=== PATIENT | female | born 1955 | race Caucasian/White ===

== ENCOUNTER → 2017-03-31 | Outpatient (CLI) | payer OTHER ==
[~2017-03-31] MED LIST: ALEV220T14 PO; ALPR-138 PO; ALPR.25 PO; HYDR-3580 PO; SUMA100T2 PO; Z.0.NO CURRENT MEDS
[2017-03-31 08:26] LABS: AUTOMATED NEUTROPHIL # 4.2 TH/MM3 (1.8-7.7); BASOPHIL % 0.3 % (0.0-2.0); EOSINOPHIL # 0.1 TH/MM3 (0-0.4); EOSINOPHIL % 1.8 % (0.0-4.0); HEMATOCRIT 37.9 % (35.0-46.0); HEMO FLAGS DIFF FINAL; LYMPH % 24.4 % (9.0-44.0); LYMPHOCYTE # 1.6 TH/MM3 (1.0-4.8); MEAN CELL VOLUME 91.5 FL (80.0-100.0); MEAN CORPUSCULAR HEMOGLOBIN 30.6 PG (27.0-34.0); MEAN CORPUSCULAR HGB CONC 33.4 % (32.0-36.0); MONO % 7.4 % (0.0-8.0); NEUT % 66.1 % (16.0-70.0); PLATELET COUNT 285 TH/MM3 (150-450); RED BLOOD COUNT 4.14 MIL/MM3 (4.00-5.30); RED CELL DISTRIBUTION WIDTH 13.1 % (11.6-17.2); WHITE BLOOD COUNT 6.4 TH/MM3 (4.0-11.0)
[2017-03-31 09:04] LABS: ALT (GPT) 17 U/L (10-53); ANION GAP 8 MEQ/L (5-15); AST (GOT) 17 U/L (15-37); BICARBONATE 27.1 MEQ/L (21.0-32.0); BLOOD UREA NITROGEN 28 MG/DL (7-18); CHLORIDE 103 MEQ/L (98-107); GLOMERULAR FILTRATION RATE 86 ML/MIN (>89); GLUCOSE,FASTING 96 MG/DL (74-99); POTASSIUM 4.4 MEQ/L (3.5-5.1); SODIUM (NA) 138 MEQ/L (136-145)
[2017-03-31 09:06] LABS: ALKALINE PHOSPHATASE 102 U/L (45-117); TOTAL BILIRUBIN ADULT 0.3 MG/DL (0.2-1.0)
[2017-03-31 09:36] LABS: BLOOD, URINE NEG (NEG); COMMENT (UR) CULT NOT INDICATED; CULTURE IF INDICATED CULT NOT INDICATED; GLUCOSE,URINE NEG (NEG); KETONE, URINE NEG (NEG); MUCUS URINE FEW /lpf (OCC); NITRITE,URINE NEG (NEG); PH, URINE 5.5 (5.0-8.5); SQUAMOUS EPITHELIAL CELL URINE <1 /hpf (0-5); URINE COLOR LIGHT-YELLOW (YELLW/STRAW)
--- NOTE | 2017-03-31 16:42 | EKG ---
Date Performed: 03/31/2017 Time Performed: 08:17:47 PTAGE: 61 years EKG: Sinus rhythm Since previous tracing, no significant change noted NORMAL ECG PREVIOUS TRACING : 05/06/2010 08.51 DOCTOR: Saniya Pacheco Interpretating Date/Time 03/31/2017 16:41:05
== END ==
LOC: CPRE 07:54
PROVIDERS: ATTEND Orthopaedic Surgery
DX: Z01.810 Encounter for preprocedural cardiovascular examination (principal); Z01.812 Encounter for preprocedural laboratory examination; M19.211 Secondary osteoarthritis, right shoulder; M75.121 Complete rotator cuff tear or rupture of right shoulder, not specified as traumatic
CPT/HCPCS: 36415; 80053; 81001; 85025; 93005

== ENCOUNTER 2017-04-19 05:20 | Inpatient (IN) | payer OTHER ==
--- NOTE | 2017-04-18 17:45 | MH ---
cc: SUDHA MANJARREZ DATE OF ADMISSION 04/19/2017 ADMISSION DIAGNOSIS 1. Rotator cuff arthropathy right shoulder. 2. Irreparable recurrent rotator cuff tear right shoulder combined with osteoarthritis with upward migration at the head of the humerus. MEDICATIONS 1. Xanax 0.25 mg daily. 2. Lately she has been taking some Hydrocodone and Tramadol for pain. ALLERGIES PENICILLIN SOCIAL HISTORY She works in a sedentary occupation in billing services. She does not smoke. PAST SURGICAL HISTORY 1. Rotator cuff repair arthroscopically by Dr. Manjarrez in 2010 and it worked very well until about eight months ago. 2. Hysterectomy 3. Rhinoplasty. PAST MEDICAL HISTORY Anxiety disorder HISTORY OF PRESENT ILLNESS About five months ago, she heard a pop in her right arm, was using it and, since then, she has had progressive increase in pain, discomfort, disability and inability to do activities of daily living. An MRI scan was done which shows evidence of rotator cuff arthropathy with a retracted recurrent tear of the supraspinatus with significant tendinopathy of the rotator cuff tendons and significant decrease in subacromial space. The diagnosis, the treatment, the prognosis and the alternatives of treatment and the potential risks, hazards and complications and expected results and postoperative course have all been discussed in detail with the patient. Informed consent obtained. No guarantees made. Detailed informed consent particularly in reference to a reverse shoulder arthroplasty and the potential risks and hazards have all been documented on the office record and therefore will not be repeated here. PHYSICAL EXAMINATION GENERAL: A white female of medium build and nourishment. HEENT: Head is normocephalic. Pupils react to light. Face symmetrical. HEART: Regular rhythm. No murmurs. LUNGS Clear to auscultation. ABDOMEN: Soft and supple. Right shoulder reveals painful restriction of range of motion with only about 80 degrees of abduction and about 90-95 degrees of flexion and significant restriction of rotation and severe weakness to external rotation against resistance with the arm by the side. There is neurovascular deficit in the right hand. MD RONALDO Pool/ /5:24 PM /5:32 PM
[~2017-04-19] VITALS: Ht 160 cm; Wt 67.8 kg
[~2017-04-19 05:20] MED LIST changes: -ALPR-138 PO; -SUMA100T2 PO; -Z.0.NO CURRENT MEDS
[2017-04-19] MEDS ORDERED: SODIUM CHLORID 0.9% 500 ML IV PRN (06:00)
[2017-04-19] MEDS ORDERED: LACTATED RINGER'S 1000 ML IV PRN (06:00)
[2017-04-19] MEDS ORDERED: METOPROLOL TARTRATE 25 MG TAB PO PRN (06:00)
[2017-04-19] MEDS ORDERED: POVIDONE IODINE 5% (ANTISEPSIS KIT) 4 APPLICATIONS EACH NARE PRN (06:00)
[2017-04-19] MEDS ORDERED: CHLORHEXIDINE GLUCONATE 2 % 1 PACK (2 CLOTHS) TOPICAL PRN (06:00)
[2017-04-19] MEDS ORDERED: SODIUM CHLORIDE 0.9% INJ 100 ML ONE ×2 (06:12→06:13)
[2017-04-19] MEDS ORDERED: POVIDONE IODINE 7.5% SCRUB 118 ML BOTTLE TOPICAL SCH (06:15)
[2017-04-19] MEDS ORDERED: VANCOMYCIN 1,250 MG/NS 250 ML (for 70-84 kg) IV SCH ×2 (06:15)
[2017-04-19] MEDS ORDERED: CLINDAMYCIN 900/NS 100 ML IV SCH ×2 (06:15)
[2017-04-19] MEDS ORDERED: BUPIVACAINE HCL PF 0.5% 30 ML VIAL ONE (07:01)
[2017-04-19] MEDS ORDERED: TOBRAMYCIN 1200 MG VIAL (ortho-sterile core) ONE (07:04)
[2017-04-19] MEDS ORDERED: GENTAMICIN SULFATE 80 MG/2 ML VIAL ONE (07:04)
[2017-04-19] MEDS ORDERED: PROMETHAZINE HCL 25 MG TAB PO PRN (10:45)
[2017-04-19] MEDS ORDERED: NALOXONE HCL 0.4 MG/ML AMP IV PUSH PRN (10:45)
[2017-04-19] MEDS ORDERED: ACETAMINOPHEN/HYDROcodone 325 MG/5 MG TAB PO PRN (10:45)
[2017-04-19] MEDS ORDERED: traMADol HCL 50 MG TAB PO PRN (10:45)
[2017-04-19] MEDS ORDERED: ONDANSETRON HCL 4 MG/2 ML VIAL IVP PRN (10:45)
[2017-04-19] MEDS ORDERED: Post-op Orders (for Pharmacy) XX ONE (10:45)
[2017-04-19] MEDS ORDERED: HYDR-3516 PO (11:04)
[2017-04-19] MEDS ORDERED: DO NOT ADM ANY ANTICOAGULANT DRUGS PRN (11:04)
[2017-04-19] MEDS ORDERED: TRAM50 PO (11:04)
[2017-04-19] MEDS ORDERED: ASPI325T33 PO (11:07)
[2017-04-19] MEDS ORDERED: *ONDANSETRON 4 MG VIAL PERIprocedural Use ONLY ONE (11:18)
[2017-04-19] MEDS ORDERED: *PROMETHAZINE 25 MG/ML VIAL PERIprocedural use ONLY ONE (11:24)
[2017-04-19] MEDS ORDERED: ePHEDrine/NS 25 MG/5 ML SYRINGE IV ONE (12:00)
[2017-04-19] MEDS ORDERED: NEOSTIGMINE 5 MG/5 ML SYRINGE IV PUSH ONE (12:00)
[2017-04-19] MEDS ORDERED: LACTATED RINGER'S 1000 ML INJ 1,000 ML IV ONE (12:00)
[2017-04-19] MEDS ORDERED: PROPOFOL 200 MG/20 ML AMP IV ONE (12:00)
[2017-04-19] MEDS ORDERED: ONDANSETRON HCL 4 MG/2 ML VIAL IV PUSH ONE (12:00)
[2017-04-19] MEDS ORDERED: ROCURONIUM INJ 50 MG/5 ML SYRINGE IV PUSH ONE (12:00)
[2017-04-19] MEDS ORDERED: LIDOCAINE HCL 1% PF 5 ML SYRINGE OTHER ONE (12:00)
[2017-04-19] MEDS: DEXT 5%-NACL 0.9% 1000 ML INJ 1,000 ML IV SCH ×2 (12:00→23:30)
[2017-04-19] MEDS ORDERED: GLYCOPYRROLATE 1 MG/5 ML SYRINGE IV PUSH ONE (12:00)
[2017-04-19] MEDS ORDERED: PHENYLEPH/NS 1000 MCG/10 ML SYR IV ONE (12:00)
[2017-04-19] MEDS ORDERED: DEXAMETHASONE SOD PHOS 4 MG/ML VIAL IV ONE (12:00)
[2017-04-19] MEDS ORDERED: ESMOLOL HCL 100 MG/10 ML VIAL IV ONE (12:00)
--- NOTE | 2017-04-19 12:37 | RADRPT ---
EXAM DATE/TIME: 04/19/2017 12:17 [facility] COMPARISON: No previous studies available for comparison. INDICATIONS : Post op, right shoulder replacement. MEDICAL HISTORY : None. SURGICAL HISTORY : None. ENCOUNTER: Initial ACUITY: 1 day PAIN SCORE: Non-responsive. LOCATION: Right shoulder FINDINGS: Two view examination of the right shoulder demonstrates postoperative right shoulder replacement. No acute fracture or dislocation. CONCLUSION: 1. Postoperative right total shoulder replacement. Cassius Damon MD on April 19, 2017 at 12:35 Board Certified Radiologist. This report was verified electronically.
[2017-04-19] MEDS ORDERED: MORPHINE SULFATE 2 MG/ML INJ IV PUSH PRN (13:30)
[2017-04-19] MEDS ORDERED: diphenhydrAMINE HCL 50 MG/ML VIAL IV PUSH PRN (14:00)
[2017-04-19] MEDS ORDERED: MAGNESIUM HYDROXIDE SUSP 30 ML CUP PO PRN (14:00)
[2017-04-19 14:30] VITALS: BP 94/57; PULSE 74; RESP 17; TEMP 96.4; O2SAT 99
[2017-04-19] MEDS ORDERED: CLINDAMYCIN INJ 900 MG in SODIUM CHLORIDE 0.9% INJ 100 ML IV SCH (15:00)
[2017-04-19 19:31] VITALS: BP 94/46; PULSE 78; RESP 17; TEMP 96.7; O2SAT 96
[2017-04-19] MEDS ORDERED: ASPIRIN EC 325 MG TABEC PO SCH (20:00)
[2017-04-19] MEDS ORDERED: VANCOMYCIN INJ 1,250 MG in SODIUM CHLOR 0.9% 250 ML INJ 250 ML IV SCH (20:00)
[2017-04-19] MEDS ORDERED: ZOLPIDEM TARTRATE 5 MG TAB PO PRN (21:00)
[2017-04-19] MEDS: KETOROLAC TROMETHAMINE 30 MG/ML (IVP) VIAL IVP SCH (23:19)
[2017-04-19] MEDS: CLINDAMYCIN 900 MG/NS PREMIX 50 ML IV SCH (23:36)
[2017-04-20] VITALS: BP 95/60; PULSE 74; RESP 18; TEMP 97; O2SAT 95
[2017-04-20 04:00] VITALS: BP 82/47; PULSE 79; RESP 18; TEMP 97.2; O2SAT 92
[2017-04-20] MEDS: KETOROLAC TROMETHAMINE 30 MG/ML (IVP) VIAL IVP SCH ×2 (04:44→10:48)
[2017-04-20] MEDS: CLINDAMYCIN 900 MG/NS PREMIX 50 ML IV SCH (04:45)
[2017-04-20 04:58] VITALS: BP 102/64
[2017-04-20 07:01] LABS: HEMATOCRIT 26.7 % (35.0-46.0); REVIEW FLAG FINAL
[2017-04-20 07:11] LABS: BICARBONATE 27.3 MEQ/L (21.0-32.0)
[2017-04-20] MEDS: DEXT 5%-NACL 0.9% 1000 ML INJ 1,000 ML IV SCH (07:42)
[2017-04-20 08:00] VITALS: BP 93/55; PULSE 90; RESP 18; TEMP 95.7; O2SAT 94
[2017-04-20] MEDS ORDERED: ACETAMINOPHEN 1000 MG/100 ML VIAL IV SCH (08:00)
--- NOTE | 2017-04-20 11:34 | MP ---
cc: SUDHA MANJARREZ DATE OF SURGERY 04/19/2017 DATE OF 1955 PREOPERATIVE DIAGNOSIS Rotator cuff arthropathy, right shoulder (irreparable recurrent tear of the supraspinatus with a decreased subacromial space and osteoarthritis). POSTOPERATIVE DIAGNOSIS Rotator cuff arthropathy, right shoulder (irreparable recurrent tear of the supraspinatus with a decreased subacromial space and osteoarthritis). OPERATIVE PROCEDURE Reverse shoulder arthroplasty, right shoulder, using DJO components. We used a standard baseplate, 32 mm/-4 glenosphere, 8 mm porous-coated stem with a standard semi-constrained insert. SURGEON Dr. Manjarrez. ANESTHESIA General with endotracheal intubation. TECHNIQUE After induction of general anesthesia and a scalene block the patient was placed in a semi beach-chair position supported on a beach-chair positioner with good positioning of the head and neck ascertained. The patient was well-secured to the operating room. The right shoulder and right upper extremity were thoroughly prepped with alcohol and ChloraPrep and draped in routine fashion. After application of Ioban adherent drapes a deltopectoral incision was made and deepened through subcutaneous tissue. The cephalic vein was identified and retracted with the deltoid. During the middle of the surgery we could see that the cephalic vein stretching and eventually gave out in spite of us protecting it; therefore the vein was clamped and ligated with 0 silk sutures. The deltopectoral interval was developed. One centimeter of pectoralis major tendon was incised. The arm was externally rotated and the short circumflex vessels were identified, clamped and cauterized with the lateral limit of the dissection being the area of the lateral cauterization. The biceps tendon sheath was opened. There was residual biceps tendon there still hanging into the groove (she had tenotomy during arthroscopic surgery). The interval was opened. It was decided to do a subscapularis peel inserted of the lesser tuberosity osteotomy because the latter does not give any particular benefit with this surgery. The subscapularis was released, the shoulder externally rotated and care taken to stay well close to the bone away from the axillary nerve. Using the osteotomy guide the head was excised. The margin of the osteotomy cuts were smoothed out with a rongeur. Attention was diverted to the glenoid. The superior and inferior capsule was dissected from the subscapularis all the way to the glenoid. The anterior labrum was removed and inferior capsule was released close to bone. The posterior capsule was also released close to bone. Retractors were placed. There was good approach to the glenoid. The center of the glenoid was marked with a Bovie and a guidewire introduced with slight downward inclination. The depth gauge measured well and the screw was placed followed by reaming with preferential reaming inferiorly exposing the subchondral bone. The baseplate was then inserted and got excellent fit and tightness. Four locking screws were placed, two 18 mm, one 14 mm and the superior one being 22 mm. The tissue and bone around the baseplate were cleaned and then the 32 mm/-4 glenosphere was impacted into place with the set screw placed. We now prepared the humerus for an 8 mm stem. Drill holes were placed with #2 FiberWire for repair of the subscapularis. Bone graft was obtained with the head placed in the proximal shaft and the stem impacted getting good fit and fill. Trial reduction was carried out with a semi-constrained standard thickness poly and range of motion and stability were all good. The joint was dislocated and the actual insert placed and impacted. The joint was thoroughly lavaged and suctioned out. Final reduction was carried out. Range of motion and stability were all good. The subscapularis was closed with the previously placed #2 FiberWire sutures. The area was lavaged and suctioned out and the deltopectoral interval closed with #2 Stratafix followed by subcutaneous tissue with 2-0 Vicryl, skin with subcuticular 3-0 Quill and Steri-Strips. A super absorbent dressing was placed over the incision. We had placed a Hemovac drain in the submuscular space, but it fell out during removal of the drapes but it is not an issue at all. Dressings were applied there. The patient was transferred tot he recovery room in satisfactory condition with a sling and swathe on. The patient tolerated the procedure well. TRANSFUSIONS AND COMPLICATIONS None. POSTOPERATIVE CONDITION Satisfactory. ESTIMATED BLOOD LOSS 250 to 300 mL. PROGNOSIS Good. MD RONALDO Pool/ELIAN /11:08 AM /11:15 AM
[2017-04-20 12:00] VITALS: BP 110/55; PULSE 78; RESP 18; TEMP 95.6; O2SAT 94
[2017-04-20 13:30] VITALS: RESP 18
--- NOTE | 2017-04-20 13:43 | PD.ORT.PN ---
Subjective Post Op Day #: 1 Pain Scale: block wearing out Subjective Remarks none Range of Motion Able to move hand and elbow well Good radial pulse Objective Vitals Last 72 hours Impressions Shoulder X-Ray 04/19/17 0000 Signed Impressions: Service Date/Time: Wednesday, April 19, 2017 12:17 - CONCLUSION: 1. Postoperative right total shoulder replacement. Cassius Damon MD Vital Signs Date Time Temp Pulse Resp B/P (MAP) Pulse Ox O2 Delivery O2 Flow Rate FiO2 04/20/17 12:00 95.6 78 18 110/55 (73) 94 04/20/17 11:48 16 04/20/17 08:03 18 04/20/17 08:03 18 04/20/17 08:00 95.7 90 18 93/55 (68) 94 04/20/17 04:58 102/64 (77) 04/20/17 04:00 97.2 79 18 82/47 (59) 92 04/20/17 00:00 97.0 74 18 95/60 (72) 95 04/19/17 19:31 96.7 78 17 94/46 (62) 96 04/19/17 14:30 96.4 74 17 94/57 (69) 99 04/19/17 14:00 77 14 96/52 (67) 100 Nasal Cannula 2 I/O 04/19/17 04/19/17 04/19/17 04/20/17 04/20/17 04/20/17 07:00 15:00 23:00 07:00 15:00 23:00 Intake Total 1400 ml 480 ml 600 ml Output Total 1250 ml 800 ml Balance 150 ml 480 ml -200 ml Intake Oral 480 ml 500 ml IV Total 1400 ml 100 ml Output Urine Total 800 ml Estimated Blood Loss 250 ml Other 1000 ml # Voids 2 # Bowel Movements 0 0 Result Diagram: 04/20/17 0555 04/20/17 0555 Objective Remarks as mentioned before. Dressings ( outer) removed revealing superabsorbent dressing, not soiled at all . Not much swelling Assessment & Plan Ortho Post Op Day #: 1 Problem List: Assessment and Plan POD # 1 RSA right Doing well HHC ordered Advised exercises for elbow and forearm Advised care of S And S DC with hydrocodone to alternate with tramadol for pain EC ASA 325 daily, for 30 days To see me one week John Manjarrez MD Apr 20, 2017 13:43
--- NOTE | 2017-04-20 13:48 | HHI.FF ---
Face to Face Verification Diagnosis: (1) S/p reverse total shoulder arthroplasty Occupational Therapy Right UE Weight Bearing: Non WB (NO ROM shoulder, but AROM elbow and hand, Scapular stabilizing exercises) Additional Instructions Instruct and adjust sling and swathe as needed. To rest arm on folded blanket in bed and chair Nursing RN Days per Week: 1 Nursing: Dressing changes, Other (First dressing change wednesday 04/25, follow with dry dressings alt days) Dressing Changes: Other I have seen patient Margy Myers on 04/20/17. My clinical findings support the need for the requested home health care services because: Limited ability to care for self I certify that my clinical findings support that this patient is homebound because: Unsafe to leave home unassisted Unable to use public transportation John Manjarrez MD Apr 20, 2017 13:48
[2017-04-20] MEDS ORDERED: DOCUSATE SODIUM 100 MG CAP PO SCH (21:00)
== END 2017-04-20 16:27 | disposition home or self-care (01) | DRG 483 ==
LOC: HSDI 05:20 → N06B 14:29
PROVIDERS: ADMIT Orthopaedic Surgery; ATTEND Orthopaedic Surgery
PROC: 0RRJ00Z Replacement of Right Shoulder Joint with Reverse Ball and Socket Synthetic Substitute, Open Approach (ICD-10-PCS; principal; 2017-04-19 07:21)
DX: M19.011 Primary osteoarthritis, right shoulder (principal); J44.9 Chronic obstructive pulmonary disease, unspecified; F41.9 Anxiety disorder, unspecified; M75.101 Unspecified rotator cuff tear or rupture of right shoulder, not specified as traumatic; Z87.891 Personal history of nicotine dependence
CPT/HCPCS: 73030; 80048; 85014; 85018; C1776; J0131; J1100; J1580; J1885; J2370; J2405; J2550; J2710; J3370; J7042; J7050; J7120